=== PATIENT | male | born 1990 | race African-American/Black ===

== ENCOUNTER 2020-05-04 16:55 | Emergency (ER) | payer SELFPAY ==
[~2020-05-04] VITALS: Ht 198.1 cm; Wt 99.8 kg
[2020-05-04 17:07] VITALS: BP 140/97
== END 2020-05-04 17:55 | disposition home or self-care (01) ==
LOC: ER 16:55
DX: S63.502A Unspecified sprain of left wrist, initial encounter (principal); X50.1XXA Overexertion from prolonged static or awkward postures, initial encounter; Y93.67 Activity, basketball; Y92.39 Other specified sports and athletic area as the place of occurrence of the external cause; Y99.8 Other external cause status
CPT/HCPCS: 73110